=== PATIENT | female | born 2000 | race Caucasian/White ===

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

== ENCOUNTER 2022-04-25 12:20 | Emergency (ER) | payer BC ==
--- NOTE | 2022-04-25 15:31 | ER ---
Nurse's Notes [facility] Name: Jaime Quinn Age: 22 yrs Sex: Female : 2000 Arrival Date: 04/25/2022 Time: 12:31 Bed 20 Private MD: Diagnosis: Otitis media, unspecified, bilateral;Acute upper respiratory infection, unspecified Presentation: 04/25 12:40 Chief complaint: Patient states: cough, mucous, nausea, sore throat X 5 days. iw Coronavirus screen: Client presents with at least one sign or symptom that may indicate coronavirus-19. Ebola Screen: Patient negative for fever greater than or equal to 101.5 degrees Fahrenheit, and additional compatible Ebola Virus Disease symptoms Patient denies exposure to infectious person. Patient denies travel to an Ebola-affected area in the 21 days before illness onset. No symptoms or risks identified at this time. Initial Sepsis Screen: Does the patient meet any 2 criteria? No. Patient's initial sepsis screen is negative. Does the patient have a suspected source of infection? No. Patient's initial sepsis screen is negative. Risk Assessment: Do you want to hurt yourself or someone else? Patient reports no desire to harm self or others. Onset of symptoms was April 20, 2022. 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 - Social history:: Smoking status: unknown. Screenin:08 Abuse screen: Denies threats or abuse. Denies injuries from another. Nutritional iw screening: No deficits noted. Tuberculosis screening: No symptoms or risk factors identified. Fall Risk None identified. Assessment: 15:07 General: Appears in no apparent distress. Behavior is calm, cooperative. Pain: Denies iw pain. Neuro: Level of Consciousness is awake, alert, obeys commands, Oriented to person, place, time, situation, Moves all extremities. Full function. Cardiovascular: Patient's skin is warm and dry. Respiratory: Trachea Respiratory effort is even, unlabored, Respiratory pattern is regular, symmetrical, GI: Abdomen is non-distended, Reports nausea. Derm: Skin is intact, is healthy with good turgor. Vital Signs: 12:40 BP 121 / 82; Pulse 113; Resp 18; Temp 98.4; Pulse Ox 97% on R/A; iw ED Course: 12:31 Patient arrived in ED. am2 12:41 Triage completed. iw 12:44 Arm band placed on. iw 12:47 Martinez Ace PA is PHCP. cp 12:47 Martinez Cabrera MD is Attending Physician. cp 15:03 Jaclyn Ruiz, RN is Primary Nurse. iw 15:07 Patient has correct armband on for positive identification. iw 15:08 No provider procedures requiring assistance completed. Patient did not have IV access iw during this emergency room visit. Administered Medications: No medications were administered Medication: 15:07 VIS not applicable for this client. iw Outcome: 15:30 Discharge ordered by MD. cp 16:04 Discharged to home ambulatory, with family. iw 16:04 Condition: good 16:04 Discharge instructions given to patient, Instructed on discharge instructions, follow up and referral plans. medication usage, Demonstrated understanding of instructions, follow-up care, medications, Prescriptions given X 2. 16:05 Patient left the ED. iw Signatures: Jaclyn Ruiz RN RN Martinez Ace PA PA Soco Flynn am2
--- NOTE | 2022-04-25 15:31 | EDPHYS ---
Physician Documentation [facility] Name: Jaime Quinn Age: 22 yrs Sex: Female : 2000 Arrival Date: 04/25/2022 Time: 12:31 Bed 20 Private MD: ED Physician Martinez Cabrera HPI: 04/25 13:00 This 22 yrs old Female presents to ER via Ambulatory with complaints of Cough, cp Nasal Congestion, Nausea, Ear Pain. 13:00 The patient or guardian reports cough, that is intermittent. Onset: The cp symptoms/episode began/occurred 5 day(s) ago. Severity of symptoms: in the emergency department the symptoms are unchanged. Associated signs and symptoms: Pertinent positives: earache, rhinorrhea, sore throat, Pertinent negatives: diarrhea, fever, vomiting. 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 - Social history:: Smoking status: unknown. ROS: 13:05 Constitutional: Negative for fever, poor PO intake. cp 13:05 Eyes: Negative for injury, pain, redness, and discharge. cp 13:05 Cardiovascular: Negative for chest pain, edema, palpitations. 13:05 Respiratory: Positive for cough, with no reported sputum, Negative for shortness of breath, wheezing. 13:05 Abdomen/GI: Negative for abdominal pain, nausea, vomiting, and diarrhea. 13:05 Skin: Negative for rash. cp 13:05 Neuro: Negative for altered mental status, headache, weakness. 13:05 All other systems are negative. Exam: 13:10 Constitutional: The patient appears in no acute distress, alert, awake, non-toxic, well cp developed, well nourished. 13:10 Head/Face: Normocephalic, atraumatic. cp 13:10 Eyes: Periorbital structures: appear normal, Conjunctiva: normal, no exudate, no injection, Sclera: no appreciated abnormality, Lids and lashes: appear normal, bilaterally. 13:10 ENT: External ear(s): are unremarkable, Ear canal(s): are normal, clear, TM's: bulging, is not appreciated, bilaterally, erythema, that is mild, bilaterally, Nose: is normal, Mouth: Lips: moist, Oral mucosa: moist, Posterior pharynx: Airway: no evidence of obstruction, patent, Tonsils: with erythema, no enlargement, no exudate, Uvula: midline, swelling, is not appreciated, erythema, that is mild, exudate, is not appreciated. 13:10 Neck: ROM/movement: is normal, is supple, without pain, no range of motions limitations, no meningismus, Lymph nodes: no appreciated lymphadenopathy. 13:10 Chest/axilla: Inspection: normal, Palpation: is normal, no crepitus, no tenderness. 13:10 Cardiovascular: Rate: tachycardic, Rhythm: regular. 13:10 Respiratory: the patient does not display signs of respiratory distress, Respirations: normal, no use of accessory muscles, no retractions, labored breathing, is not present, Breath sounds: are clear throughout, no decreased breath sounds, no stridor, no wheezing. 13:10 Abdomen/GI: Exam negative for discomfort, distension, guarding, Inspection: abdomen appears normal. 13:10 Skin: cellulitis, is not appreciated, no rash present. Vital Signs: 12:40 BP 121 / 82; Pulse 113; Resp 18; Temp 98.4; Pulse Ox 97% on R/A; iw MDM: 13:00 Differential Diagnosis: Bronchitis Influenza Upper Respiratory Infection Sinusitis cp Otitis Media Viral Syndrome Pneumonia. 15:04 Patient medically screened. [facility] 15:30 Data reviewed: vital signs, nurses notes, lab test result(s). 15:30 Counseling: I had a detailed discussion with the patient and/or guardian regarding: the cp historical points, exam findings, and any diagnostic results supporting the discharge/admit diagnosis, lab results, to return to the emergency department if symptoms worsen or persist or if there are any questions or concerns that arise at home. 04/25 12:50 Order name: Strep 04/25 12:50 Order name: Influenza Screen (a \\T\\ B) 04/25 12:50 Order name: COVID-19 SARS RT PCR (Document "Date of Onset" if Symptomatic) 04/25 13:51 Order name: Throat Culture EDMS Administered Medications: No medications were administered Disposition Summary: 04/25/22 15:30 Discharge Ordered Location: Home cp Problem: new cp Symptoms: have improved cp Condition: Stable cp Diagnosis - Otitis media, unspecified, bilateral cp - Acute upper respiratory infection, unspecified cp Followup: cp - With: Private Physician - When: 2 - 3 days - Reason: Worsening of condition Discharge Instructions: - Discharge Summary Sheet cp - Otitis Media, Adult cp - Upper Respiratory Infection, Adult cp Forms: - Work release form iw - Medication Reconciliation Form cp - Thank You Letter cp - Antibiotic Education cp - Prescription Opioid Use cp Prescriptions: - Flonase Allergy Relief 50 mcg/actuation Nasal spray,suspension - spray 1 spray by INTRANASAL route once daily for 14 days; 1 Device; Refills: 0, cp Product Selection Permitted - Amoxicillin 875 mg Oral Tablet - take 1 tablet by ORAL route every 12 hours for 10 days; 20 tablet; Refills: 0, cp Product Selection Permitted Signatures: Dispatcher [employer] Martinez Segundo MD MD cha Williams, Irene, RN RN Martinez Osei PA PA cp
[2022-04-25 16:40] VITALS: BP 121/82; TEMP 98.4; O2SAT 97
== END 2022-04-25 16:05 | disposition home or self-care (01) ==
LOC: ER 12:20
DX: H66.93 Otitis media, unspecified, bilateral (principal); J06.9 Acute upper respiratory infection, unspecified; Z20.822 Contact with and (suspected) exposure to COVID-19; Z91.018 Allergy to other foods
CPT/HCPCS: 87070; 87081; 87804 ×2; 99282; U0003

== ENCOUNTER 2022-06-16 18:25 | Emergency (ER) | payer BC ==
[2022-06-16] MEDS ORDERED: METHYLPREDNISOLONE 125 MG INJ ONE (18:49)
[2022-06-16] MEDS ORDERED: DIPHENHYDRAMINE 50 MG/ML VIAL ONE (18:49)
[2022-06-16] MEDS ORDERED: FAMOTIDINE 20 MG/2 ML VIAL IV ONE (18:53)
--- NOTE | 2022-06-16 19:25 | ER ---
Nurse's Notes [facility] Name: Jaime Quinn Age: 22 yrs Sex: Female : 2000 Arrival Date: 06/16/2022 Time: 18:26 Bed 5 Private MD: Diagnosis: Allergic reaction to food;Pain in throat;Cough Presentation: 06/16 18:31 Chief complaint: Allergic to rudd tomatoes, ate some on her sandwich approx 15 mins iw ago, now c/o SOB, throat and back itching. Coughing in triage, hives noted on back. Coronavirus screen: At this time, the client does not indicate any symptoms associated with coronavirus-19. Ebola Screen: No symptoms or risks identified at this time. Onset of symptoms was June 16, 2022. 18:31 Method Of Arrival: Ambulatory iw 18:31 Acuity: MORALES 2 iw 19:48 Onset: The symptoms/episode began/occurred suddenly. Anaphylaxis evaluation, no signs ll3 or symptoms of anaphylaxis were noted. Initial Sepsis Screen: Does the patient meet any 2 criteria? No. Patient's initial sepsis screen is negative. Does the patient have a suspected source of infection? No. Patient's initial sepsis screen is negative. Risk Assessment: Do you want to hurt yourself or someone else? Patient reports no desire to harm self or others. Triage Assessment: 19:48 General: Appears in no apparent distress. comfortable, Behavior is calm, cooperative. ll3 Pain: Denies pain. EENT: Reports Scratchy throat. Respiratory: Airway is patent Respiratory effort is even, unlabored, Respiratory pattern is regular, symmetrical. Derm: Skin is pink, warm \T\ dry. Historical: - Allergies: 18:33 rudd tomatos; iw - Home Meds: 18:33 melatonin 5 mg Oral cap 1 cap nightly prn [Active]; iw - PMHx: 18:33 None; iw - PSHx: 18:33 None; iw - Immunization history:: Adult Immunizations up to date. - Social history:: Smoking status: Patient denies any tobacco usage or history of. Screenin:56 Abuse screen: Denies threats or abuse. Denies injuries from another. Nutritional tp1 screening: No deficits noted. Tuberculosis screening: No symptoms or risk factors identified. Fall Risk No fall in past 12 months (0 pts). No secondary diagnosis (0 pts). IV access (20 points). Ambulatory Aid- Crutches/Cane/Walker (15 pts). Gait- Normal/Bed Rest/Wheelchair (0 pts) Mental Status- Oriented to own ability (0 pts). Assessment: 18:41 Reassessment: administered Benadryl, pt reported arm pain and reported dizziness, pt tp1 appears flush. Advised pt to take slow deep breaths, vomit bag at bedside. After 2 minutes Pt appeared back to baseline, stated feeling much better. 18:47 General: Appears in no apparent distress. uncomfortable, Behavior is calm, cooperative. tp1 Pain: Denies pain. Neuro: Level of Consciousness is awake, alert, obeys commands, Oriented to person, place, time, situation. Cardiovascular: Patient's skin is warm and dry. Respiratory: Reports throat feels scratchy Airway is patent Respiratory effort is even, unlabored, Denies shortness of breath. GI: Abdomen is round non-distended. : No signs and/or symptoms were reported regarding the genitourinary system. EENT: No signs and/or symptoms were reported regarding the EENT system. Derm: Skin is pink, warm \T\ dry. Musculoskeletal: Circulation, motion, and sensation intact. Vital Signs: 18:31 BP 182 / 102; Pulse 100; Resp 24; Temp 97.2; Pulse Ox 98% on R/A; iw 18:46 BP 125 / 89; Pulse 87; Resp 19; Pulse Ox 100% on R/A; jl7 19:49 BP 103 / 68; Pulse 78; Resp 16; Pulse Ox 100% on R/A; ll3 ED Course: 18:26 Patient arrived in ED. am2 18:29 Paresh Munoz DO is Attending Physician. ms3 18:33 Triage completed. iw 18:33 Arm band placed on. iw 18:40 Inserted saline lock: 20 gauge in right antecubital area, using aseptic technique. jl7 18:44 Patient has correct armband on for positive identification. Bed in low position. Call tp1 light in reach. Adult w/ patient. 18:44 Pulse ox on. NIBP on. tp1 18:47 Patti Abreu, ROBY is Primary Nurse. tp1 19:17 Attending Physician role handed off by Paresh Munoz DO kwabena 19:17 Martinez Cabrera MD is Attending Physician. kwabena 19:24 Calixto Becerril DO is Referral Physician. kwabena 19:49 No provider procedures requiring assistance completed. ll3 20:28 IV discontinued, intact, bleeding controlled, No redness/swelling at site. Pressure ll3 dressing applied. Administered Medications: 18:34 CANCELLED (Physician Discretion): SOLU-Medrol (methylPREDNISolone sodium succinate) 125 ms3 mg IM once 18:41 Drug: Benadryl (diphenhydrAMINE) 25 mg Route: IVP; Site: right antecubital; vg1 20:29 Follow up: Response: No adverse reaction ll3 18:43 Drug: SOLU-Medrol (methylPrednisoLONE) 125 mg Route: IVP; Site: right antecubital; vg1 20:29 Follow up: Response: No adverse reaction ll3 19:36 Drug: Pepcid (famotidine) 20 mg Route: IVP; Site: right antecubital; ll3 20:29 Follow up: Response: No adverse reaction ll3 19:36 Drug: predniSONE 60 mg Route: PO; ll3 20:29 Follow up: Response: No adverse reaction ll3 19:36 Drug: Pepcid (famotidine) 20 mg Route: PO; ll3 20:29 Follow up: Response: No adverse reaction ll3 19:37 Drug: NS 0.9% 500 ml Route: IV; Rate: bolus; Site: right antecubital; ll3 20:29 Follow up: Response: No adverse reaction; IV Status: Completed infusion; IV Intake: ll3 500ml 19:38 Not Given (Duplicate Order): Benadryl (diphenhydrAMINE) 25 mg IVP once ll3 19:38 Drug: Benadryl (diphenhydrAMINE) 25 mg Route: PO; ll3 20:29 Follow up: Response: No adverse reaction ll3 Medication: 19:49 VIS not applicable for this client. ll3 Intake: 20:29 IV: 500ml; Total: 500ml. ll3 Outcome: 19:24 Discharge ordered by . kwabena 20:28 Discharged to home ambulatory, with significant other. ll3 20:28 Condition: stable 20:28 Discharge instructions given to patient, significant other, Instructed on discharge instructions, follow up and referral plans. medication usage, Demonstrated understanding of instructions, follow-up care, medications, Prescriptions given X 4. 20:30 Patient left the ED. ll3 Signatures: Martinez Cabrera MD MD cha Williams, Irene, RN RN iw Марина Munoz RN RN jl7 Soco Tang Victoria, RN RN vg1 Paresh Munoz, DO ms3 Chicho Edge RN RN ll3 Patti Abreu RN RN tp1 Corrections: (The following items were deleted from the chart) 18:56 18:51 Reassessment: administered Benadryl, pt reported arm pain and reported dizziness, tp1 pt appears flush. Advised pt to take slow deep breaths, vomit bag at bedside. After 2 minutes Pt appeared back to baseline, stated feeling much better. tp1
--- NOTE | 2022-06-16 19:25 | EDPHYS ---
Physician Documentation [facility] Name: Jaime Quinn Age: 22 yrs Sex: Female : 2000 Arrival Date: 06/16/2022 Time: 18:26 Bed 5 Private MD: ED Physician Martinez Cabrera HPI: 06/16 18:35 This 22 yrs old Female presents to ER via Ambulatory with complaints of ms3 Allergic Reaction, Difficulty Swallowing. 18:35 22-year-old female with no past medical history and allergy to rudd tomatoes presents ms3 15 minutes after eating a rudd tomato. Patient states her throat is sore and she is continually coughing. Patient denies pain. Patient denies alleviating or inciting factors. Patient did not take medications prior to arrival.. Historical: - Allergies: 18:33 rudd tomatos; iw - Home Meds: 18:33 melatonin 5 mg Oral cap 1 cap nightly prn [Active]; iw - PMHx: 18:33 None; iw - PSHx: 18:33 None; iw - Immunization history:: Adult Immunizations up to date. - Social history:: Smoking status: Patient denies any tobacco usage or history of. ROS: 18:35 Constitutional: Negative for fever, and chills. ms3 18:35 Cardiovascular: Negative for chest pain, and palpitations. Abdomen/GI: Negative for abdominal pain, nausea, vomiting, diarrhea, and constipation, MS/Extremity: Negative for injury and deformity, Skin: Negative for injury, rash, and discoloration, Neuro: Negative for headache, weakness, numbness, tingling. 18:35 ENT: Positive for sore throat. 18:35 Respiratory: Positive for cough. 18:35 All other systems are negative. Exam: 18:38 Constitutional: This is a well developed, well nourished patient who is awake, alert, ms3 and in no acute distress. Eyes: Pupils equal round and reactive to light, extra-ocular motions intact. Lids and lashes normal. Conjunctiva and sclera are non-icteric and not injected. Periorbital areas with no swelling, redness, or edema. Neck: Trachea midline, no cervical lymphadenopathy. Supple, full range of motion without nuchal rigidity, or vertebral point tenderness. No Meningismus. Chest/axilla: Normal chest wall appearance and motion. Nontender with no deformity. Cardiovascular: Regular rate and rhythm with a normal S1 and S2. No gallops, murmurs, or rubs. Normal PMI, no JVD. No pulse deficits. Respiratory: Lungs have equal breath sounds bilaterally, clear to auscultation and percussion. No rales, rhonchi or wheezes noted. No increased work of breathing, no retractions or nasal flaring. Abdomen/GI: Soft, non-tender, with normal bowel sounds. No distension or tympany. No guarding or rebound. No evidence of tenderness throughout. 18:38 MS/ Extremity: Pulses equal, no cyanosis. Neurovascular intact. Full, normal range of motion. Neuro: Awake and alert, GCS 15, oriented to person, place, time, and situation. Cranial nerves II-XII grossly intact. Motor strength 5/5 in all extremities. Sensory grossly intact. Cerebellar exam normal. Normal gait. Psych: Awake, alert, with orientation to person, place and time. Behavior, mood, and affect are within normal limits. 18:38 ENT: Posterior pharynx: Tonsils: enlarged on the left, no erythema, no exudate, no ulcerations. Vital Signs: 18:31 BP 182 / 102; Pulse 100; Resp 24; Temp 97.2; Pulse Ox 98% on R/A; iw 18:46 BP 125 / 89; Pulse 87; Resp 19; Pulse Ox 100% on R/A; jl7 19:49 BP 103 / 68; Pulse 78; Resp 16; Pulse Ox 100% on R/A; ll3 MDM: 18:33 Patient medically screened. ms3 18:38 Differential diagnosis: anaphylaxis, Allergic reaction. Data reviewed: vital signs, ms3 nurses notes. Administered Medications: 18:34 CANCELLED (Physician Discretion): SOLU-Medrol (methylPREDNISolone sodium succinate) 125 ms3 mg IM once 18:41 Drug: Benadryl (diphenhydrAMINE) 25 mg Route: IVP; Site: right antecubital; vg1 20:29 Follow up: Response: No adverse reaction ll3 18:43 Drug: SOLU-Medrol (methylPrednisoLONE) 125 mg Route: IVP; Site: right antecubital; vg1 20:29 Follow up: Response: No adverse reaction ll3 19:36 Drug: Pepcid (famotidine) 20 mg Route: IVP; Site: right antecubital; ll3 20:29 Follow up: Response: No adverse reaction ll3 19:36 Drug: predniSONE 60 mg Route: PO; ll3 20:29 Follow up: Response: No adverse reaction ll3 19:36 Drug: Pepcid (famotidine) 20 mg Route: PO; ll3 20:29 Follow up: Response: No adverse reaction ll3 19:37 Drug: NS 0.9% 500 ml Route: IV; Rate: bolus; Site: right antecubital; ll3 20:29 Follow up: Response: No adverse reaction; IV Status: Completed infusion; IV Intake: ll3 500ml 19:38 Not Given (Duplicate Order): Benadryl (diphenhydrAMINE) 25 mg IVP once ll3 19:38 Drug: Benadryl (diphenhydrAMINE) 25 mg Route: PO; ll3 20:29 Follow up: Response: No adverse reaction ll3 Disposition Summary: 06/16/22 19:24 Discharge Ordered Location: Home kwabena Problem: new kwabena Symptoms: are unchanged kwabena Condition: Stable kwabena Diagnosis - Allergic reaction to food kwabena - Pain in throat kwabena - Cough kwabena Followup: ms3 - With: - When: 2 - 3 days - Reason: Re-evaluation by your physician Discharge Instructions: - Discharge Summary Sheet ms3 - Allergies, Adult ms3 - Sore Throat ms3 - Cough, Adult ms3 Forms: - Medication Reconciliation Form kwabena - Thank You Letter kwabena - Antibiotic Education kwabena - Prescription Opioid Use [facility] Prescriptions: - Benadryl 25 mg Oral Capsule - take 2 capsule by ORAL route every 6 hours As needed; 45 tablet; Refills: 0, [facility] Product Selection Permitted - EpiPen 2-Westley - inject 1 application by SUBCUTANEOUS route as directed; 1 packet; Refills: 0, [facility] Product Selection Permitted - Prednisone 20 mg Oral Tablet - take 2 tablets by ORAL route once daily for 5 days; 10 tablet; Refills: 0, ms3 Product Selection Permitted - Pepcid 20 mg Oral Tablet - take 1 tablet by ORAL route every 12 hours for 21 days; 42 tablet; Refills: 0, [facility] Product Selection Permitted Signatures: Martinez Cabrera MD MD cha Williams, Irene, RN RN Carmela Mays RN RN mino1 Paresh Munoz DO DO ms3 Loubet, Lynsea, RN RN ll3 Corrections: (The following items were deleted from the chart) 18:34 18:34 SOLU-Medrol (methylPREDNISolone sodium succinate) 125 mg IM once ordered. ms3 ms3
[2022-06-16] MEDS ORDERED: FAMOTIDINE 20 MG TAB ONE (19:35)
[2022-06-16] MEDS ORDERED: NA CHLORIDE 0.9% 1,000 ML ONE (19:35)
[2022-06-16] MEDS ORDERED: predniSONE 20 MG TAB ONE (19:35)
[2022-06-16] MEDS ORDERED: DIPHENHYDRAMINE 25 MG TAB/CAP ONE (19:35)
[2022-06-18 05:05] VITALS: TEMP 97.2
[2022-06-18 05:07] VITALS: O2SAT 100
[2022-06-18 05:09] VITALS: BP 103/68
== END 2022-06-16 20:30 | disposition home or self-care (01) ==
LOC: ER 18:25
DX: R07.0 Pain in throat (principal); R05.9 Cough, unspecified; Z91.018 Allergy to other foods
CPT/HCPCS: 96361; 96375; 96374; 99284; J1200; J7512; J7030; J2930

== ENCOUNTER 2024-07-21 12:31 | Emergency (ER) | payer BC ==
--- OUTSIDE RECORDS SUMMARY | 2024-07-21 12:34 | XMS REPORT | Continuity of Care Document ---
Author Name Unknown Address [address] [facility] [address]. [address] [place] [address] [facility] Address [address] [facility]. [address] [place] [address] Care Team Providers Care Software Specialist Name Role Phone Poonam Green Primary Care Physician Niki Sosa DO Attending Clinician [phone] MYRTLE MARTÍNEZ Attending Clinician Unavailable Myrtle Martínez DO Attending Clinician [phone] [email or web address]_S Attending Clinician Unavaila LEISA Vicente Attending Clinician Unavailable Leisa Pérez Attending Clinician [phone] MICKY SAMAYOA Attending Clinician Unavailable Xiomara Morley MD Attending Clinician [phone] Micky Samayoa MD Attending Clinician [phone] Sabine YOUNG Attending Clinician Unavailable Sabine Barnett Attending Clinician [phone] BEN CROWELL Attending Clinician UnavailBen Sams Attending Clinician + [phone] NIKI SOSA Attending Clinician Roosevelt Perry Attending Clinician [phone] ROOSEVELT PRINGLE Attending Clinician Unavailable [email or web address]_S Admitting Clinician NIKI Angel Admitting Clinician Noreen wylie Payers Payer Name Policy Type Policy Number Effective Date Expirati on Date Source [place] [id number] 2019 00:00:00 Problems Condition Name Condition Details Condition Category Status Onset Date Resolution Date Last Treatment Date Treating Clinician Comments Source No known active problems No known active problems Disease [facility] Allergies, Adverse Reactions, Alerts Allergy Name Allergy Type Status Severity Reaction(s) Onset Date Inactive Date Treating Clinician Comments Source Ramires Propensi ty to adverse reaction s Active Swelling 2019-09 00:00: 00 Ramires tomato [facility] RAMIRES DRUG INGREDI Active Swelling 2019-09 00:00: 00 [facility] NO KNOWN ALLERGIE S Drug Class Active [facility] Social History Social Habit Start Date Stop Date Quantity Comments Source Gender identity [facility] Sexual orientation U [facility] Exposure to SARS-CoV-2 (event) 2023-01-21 00:00:00 2023-01-31 10:09:[address] [facility] Sex Assigned At 2002 00:00:00 2002 00:00:00 [facility] Smoking Status Start Date Stop Date Source Tobacco smoking consumption unknown [facility] Medications Ordered Medication Name Filled Medication Name Start Date Stop Date Current Medication? Ordering Clinician Indication Dosage Frequency Signature (SIG) Comments Components Source proMETHazin e (PHENERGAN) 25 mg in NaCl 0.9% (NS) 50 mL IV piggyback 06-08 06:45: 00 06-08 07:10 :00 No 25mg 25 mg, IV Piggyback, Administer over 30 Minutes, ONCE, 1 dose, On 06/08/23 at 0145, RUTH [facility] NaCl 0.9% (NS) bolus infusion 1,000 mL 06-08 06:00: 00 06-08 06:07 :00 No 1000mL at 999 mL/hr, 1,000 mL, IV Infusion, ONCE, 1 dose, On Fri06/08/23 at 0100, STAT [facility] ondansetron (ZOFRAN (PF)) injection 4 mg 06-08 05:00: 00 06-08 05:18 :00 No 4mg 4 mg, Slow IV Push, ONCE, 1 dose, On Fri06/08/23 at 0000, RUTH [facility] proMETHazin e 25 mg suppository 06-08 00:00: 00 Yes [id number] 25mg Insert 1 Suppositor y into rectum every 4 (four) hours as needed for Nausea and Vomiting (N/V). [facility] ibuprofen (IBU) tablet 800 mg 06-04 11:30: 00 06-04 11:37 :00 No 800mg 800 mg, Oral, ONCE, 1 dose, On Fri06/04/23 at 0630, RUTH [facility] loratadine 10 mg tablet 06-04 00:00: 00 Yes [id number] 10mg Take 1 tablet by mouth in the morning. [facility] ondansetron 4 mg disintegrat ing tablet 06-04 00:00: 00 Yes [id number] 4mg Take 1 tablet by mouth every 4 (four) hours as needed for Nausea and Vomiting (N/V). [facility] dextrometho moustaphahan-guaif enesin 10-100 mg/5 mL solution 06-04 00:00: 00 Yes [id number] 10mL Take 10 mL by mouth every 6 (six) hours as needed for Cough. [facility] predniSONE 20 mg tablet 01-31 00:00: 00 Yes [id number] 1 PO BID x 4 days [facility] amoxicillin 875 mg tablet 01-31 00:00: 00 02-08 04:59 :00 No [id number] 875mg Take 1 tablet by mouth in the morning and 1 tablet in the evening. Do all this for 7 days. [facility] iopamidol (ISOVUE 370-500 mL) injection 60 mL 05-23 19:45: 00 05-23 19:45 :00 No [id number] 60mL 60 mL, Intravenou s, ONCE, 1 dose, On Marcy 05/23/22 at 1445, Routine [facility] dicyclomine (BENTYL) tablet 20 mg 05-23 19:45: 00 05-23 19:03 :00 No 20mg 20 mg, Oral, ONCE, 1 dose, On Marcy 05/23/22 at 1445, Routine [facility] maalox:diph enhydrAMINE :lidocaine 2 % viscous 1:1:1 ([facility]) oral suspension 15 mL 05-23 19:15: 00 05-23 19:19 :00 No 15mL 15 mL, Oral, ONCE, 1 dose, On Marcy 05/23/22 at 1415, Routine [facility] ketorolac (TORADOL) injection 15 mg 05-23 18:45: 00 05-23 19:03 :00 No 15mg 15 mg, Slow IV Push, ONCE, 1 dose, On Marcy 05/23/22 at 1345, RUTH [facility] ondansetron (ZOFRAN (PF)) injection 4 mg 05-23 18:30: 00 05-23 19:03 :00 No 4mg 4 mg, Slow IV Push, ONCE, 1 dose, On Marcy 05/23/22 at 1330, RUTH [facility] MELATONIN ORAL 05-23 14:41: 48 Yes 1{tbl} Take 1 tablet by mouth every evening. [facility] TAKE 1 TABLET BY MOUTH EVERY 12 HOURS FOR 10 DAYS 05-16 00:00: 00 No 875 ondansetron (ZOFRAN (PF)) injection 4 mg 2019-09 19:00: 00 07-30 17:59 :00 No 4mg 4 mg, Slow IV Push, ONCE, 1 dose, 07/30/20 at 1300, RUTH [facility] NaCl 0.9% (NS) bolus infusion 1,000 mL 2019-09 18:00: 00 07-30 19:00 :00 No 1000mL at 999 mL/hr, 1,000 mL, IV Infusion, ONCE, 1 dose, [place] 07/30/20 at 1200, RUTH [facility] ondansetron 4 mg disintegrat ing tablet 2019-09 00:00: 00 05-23 00:00 :00 No [id number] 4mg Take 1 tablet by mouth every 12 (twelve) hours as needed for Nausea and Vomiting (N/V). [facility] Vital Signs Vital Name Observation Time Observation Value Comments S ource Systolic blood pressure 2024-01-25 15:07:00 122 mm[Hg] [facility] Diastolic blood pressure 2024-01-25 15:07:00 85 mm[Hg] [facility] Heart rate 2024-01-25 15:07:00 111 /min [facility] Body temperature 2024-01-25 15:07:[address] [facility] Respiratory rate 2024-01-25 15:07:00 20 /min [facility] Body height 2024-01-25 15:07:00 162.6 cm [facility] Body weight 2024-01-25 15:07:00 95.255 kg [facility] BMI 2024-01-25 15:07:00 36.05 kg/m2 [facility] Oxygen saturation in Arterial blood by Pulse oximetry 2024-01-25 15:07:00 99 /min [facility] Systolic blood pressure 2023-12-30 17:36:00 126 mm[Hg] [facility] Diastolic blood pressure 2023-12-30 17:36:00 84 mm[Hg] [facility] Heart rate 2023-12-30 17:36:00 84 /min [facility] Body temperature 2023-12-30 17:36:[address] [facility] Respiratory rate 2023-12-30 17:36:00 18 /min [facility] Body height 2023-12-30 17:36:00 162.6 cm [facility] Body weight 2023-12-30 17:36:00 93.441 kg [facility] BMI 2023-12-30 17:36:00 35.36 kg/m2 [facility] Oxygen saturation in Arterial blood by Pulse oximetry 2023-12-30 17:36:00 99 /min [facility] Systolic blood pressure 2023-06-08 07:41:00 120 mm[Hg] [facility] Diastolic blood pressure 2023-06-08 07:41:00 78 mm[Hg] [facility] Heart rate 2023-06-08 07:41:00 84 /min [facility] Body temperature 2023-06-08 07:41:[address] [facility] Respiratory rate 2023-06-08 07:41:00 18 /min [facility] Oxygen saturation in Arterial blood by Pulse oximetry 2023-06-08 07:41:00 99 /min [facility] Body height 2023-06-08 04:30:00 162.6 cm [facility] Body weight 2023-06-08 04:30:00 93.441 kg [facility] BMI 2023-06-08 04:30:00 35.36 kg/m2 [facility] Systolic blood pressure 2023-06-04 11:24:00 118 mm[Hg] [facility] Diastolic blood pressure 2023-06-04 11:24:00 77 mm[Hg] [facility] Heart rate 2023-06-04 11:24:00 111 /min [facility] Body temperature 2023-06-04 11:24:[address] [facility] Respiratory rate 2023-06-04 11:24:00 18 /min [facility] Body height 2023-06-04 11:24:00 154.9 cm [facility] Body weight 2023-06-04 11:24:00 95.255 kg [facility] BMI 2023-06-04 11:24:00 39.68 kg/m2 [facility] Oxygen saturation in Arterial blood by Pulse oximetry 2023-06-04 11:24:00 99 /min [facility] Systolic blood pressure 2023-01-31 15:11:00 119 mm[Hg] [facility] Diastolic blood pressure 2023-01-31 15:11:00 78 mm[Hg] [facility] Heart rate 2023-01-31 15:11:00 94 /min [facility] Body temperature 2023-01-31 15:11:[address] [facility] Respiratory rate 2023-01-31 15:11:00 16 /min [facility] Body height 2023-01-31 15:11:00 162.6 cm [facility] Body weight 2023-01-31 15:11:00 95.255 kg [facility] BMI 2023-01-31 15:11:00 36.05 kg/m2 [facility] Oxygen saturation in Arterial blood by Pulse oximetry 2023-01-31 15:11:00 99 /min [facility] BMI 2022-10-10 00:19:00 37.76 kg/m2 [facility] Oxygen saturation in Arterial blood by Pulse oximetry 2022-10-10 00:19:00 100 /min [facility] Systolic blood pressure 2022-10-10 00:19:00 129 mm[Hg] [facility] Diastolic blood pressure 2022-10-10 00:19:00 86 mm[Hg] [facility] Heart rate 2022-10-10 00:19:00 94 /min [facility] Body temperature 2022-10-10 00:19:[address] [facility] Respiratory rate 2022-10-10 00:19:00 22 /min [facility] Body height 2022-10-10 00:19:00 162.6 [facility] 2022-10-10 00:19:00 99.791 kg [facility] Systolic blood pressure 2022-05-23 19:54:00 114 mm[Hg] [facility] Diastolic blood pressure 2022-05-23 19:54:00 78 mm[Hg] [facility] Heart rate 2022-05-23 19:54:00 74 /min [facility] Respiratory rate 2022-05-23 19:54:00 18 /min [facility] Oxygen saturation in Arterial blood by Pulse oximetry 2022-05-23 19:54:00 98 /min [facility] Body height 2022-05-23 18:14:00 162.6 cm [facility] Body weight 2022-05-23 18:14:00 97.977 kg [facility] BMI 2022-05-23 18:14:00 37.08 kg/m2 [facility] Body temperature 2022-05-23 18:12:[address] [facility] Systolic blood pressure 2020-07-30 19:38:00 124 mm[Hg] [facility] Diastolic blood pressure 2020-07-30 19:38:00 69 mm[Hg] [facility] Heart rate 2020-07-30 19:38:00 86 /min [facility] Body temperature 2020-07-30 19:38:[address] [facility] Respiratory rate 2020-07-30 19:38:00 18 /min [facility] Oxygen saturation in Arterial blood by Pulse oximetry 2020-07-30 19:38:00 98 /min [facility] Body height 2020-07-30 17:51:00 162.6 cm [facility] Body weight 2020-07-30 17:51:00 83.915 kg [facility] BMI 2020-07-30 17:51:00 31.76 kg/m2 [facility] Systolic blood pressure 2020-07-30 19:38:00 124 mm[Hg] [facility] Diastolic blood pressure 2020-07-30 19:38:00 69 mm[Hg] [facility] Heart rate 2020-07-30 19:38:00 86 /min [facility] Body temperature 2020-07-30 19:38:[address] [facility] Respiratory rate 2020-07-30 19:38:00 18 /min [facility] Oxygen saturation in Arterial blood by Pulse oximetry 2020-07-30 19:38:00 98 /min [place] Body height 2020-07-30 17:51:00 162.6 cm [facility] Body weight 2020-07-30 17:51:00 83.915 kg [facility] BMI 2020-07-30 17:51:00 31.76 kg/m2 [facility] Respiratory Rate 2022-05-16 14:06:00 BP Systolic 2022-05-16 14:06:00 123 mm[Hg] BP Diastolic 2022-05-16 14:06:00 81 mm[Hg] Weight Measured 2022-05-16 14:06:00 216.00 pounds Height Measured 2022-05-16 14:06:00 64.00 inches Body Temperature 2022-05-16 14:06:00 97.50 degrees Heart Rate 2022-05-16 14:06:00 93.00 /min Procedures Procedure Date / Time Performed Performing Clinician Source [place] AVULSION NAIL PLATE PARTIAL/COMPLETE SIMPLE 1 2023-12-30 18:23:[address] [facility] CONSENT/REFUSAL FOR DIAGNOSIS AND TREATMENT 2023-06-08 04:23:17 Doctor Unassigned, [place] [facility] RAPID STREP SCREEN FOR GROUP A 2023-06-04 11:32:[address] [facility] RAPID INFLUENZA A/B 2023-06-04 11:32:[address] [facility] COVID-19 (ID NOW RAPID TESTING) 2023-06-04 11:32:[address] [facility] CONSENT/REFUSAL FOR DIAGNOSIS AND TREATMENT 2023-06-04 11:20:18 Doctor Unassigned, [place] [facility] CONSENT/REFUSAL FOR DIAGNOSIS AND TREATMENT 2023-01-31 15:08:19 Doctor Unassigned, [place] [facility] URINALYSIS 2022-10-10 01:14:00 Ben Crowell [facility] NOTICE OF PRIVACY PRACTICES 2022-10-10 00:07:08 Doctor Unassigned, [place] [facility] CONSENT/REFUSAL FOR DIAGNOSIS AND TREATMENT 2022-10-10 00:06:48 Doctor Unassigned, [place] [facility] CT ABDOMEN PELVIS W CONTRAST 2022-05-23 18:46:[address] [facility] LIPASE 2022-05-23 18:29:00 Niki Sosa [facility] COMP. METABOLIC PANEL (03010) 2022-05-23 18:29:[address] [facility] CBC WITH DIFF 2022-05-23 18:29:00 [facility] 2022-05-23 18:29:00 Niki Sosa [facility] POCT TEST 2022-05-23 18:18:[address] [facility] CONSENT/REFUSAL FOR DIAGNOSIS AND TREATMENT 2022-05-23 18:00:35 Doctor Unassigned, [place] [facility] LIPASE 2020-07-30 17:58:00 Roosevelt [facility] COMP. METABOLIC PANEL (20911) 2020-07-30 17:58:[address] [facility] CBC WITH DIFF 2020-07-30 17:58:00 Roosevelt Pringle [facility] URINALYSIS 2020-07-30 17:58:00 Roosevelt Pringle [facility] POCT TEST 2020-07-30 17:54:[address] [facility] CONSENT/REFUSAL FOR DIAGNOSIS AND TREATMENT 2020-07-30 17:38:13 Doctor Unassigned, [place] [facility] NOTICE OF PRIVACY PRACTICES 2020-07-30 17:37:43 Doctor Unassigned, [place] [facility] Plan of Care Planned Activity Planned Date Details Comments Source Goal Plan of Care Note [code = 93158-9] Goal Plan of Care Note [code = 95676-2] Goal Plan of Care Note [code = 91461-2] Goal Plan of Care Note [code = 96276-1] Goal Plan of Care Note [code = 75979-6] Goal Plan of Care Note [code = 95882-5] Goal Plan of Care Note [code = 64820-4] Goal Plan of Care Note [code = 43538-1] Encounters Start Date/Time End Date/Time Encounter Type Admission Type Attending [facility] Care Department Encounter ID Source 2024-07-07 08:50:48 2024-07-07 08:50:48 Outpatient SFA SFA [id number] Bryn Heredia 2024-06-08 09:23:46 2024-06-08 09:23:46 Outpatient SFA SFA [id number] Bryn Heredia 2024-05-27 08:51:38 2024-05-27 08:51:38 Outpatient SFA SFA [id number] Bryn Heredia 2024-05-13 08:44:30 2024-05-13 08:44:30 Outpatient SFA SFA [id number] Bryn Heredia 2024-04-30 12:10:56 2024-04-30 12:10:56 Outpatient SFA SFA [id number] Bryn Heredia 2024-04-29 08:45:11 2024-04-29 08:45:11 Outpatient SFA SFA [id number] Bryn Heredia 2024-04-15 08:06:18 2024-04-15 08:06:18 Outpatient SFA SFA [id number] Bryn Heredia 2024-03-25 08:09:37 2024-03-25 08:09:37 Outpatient SFA SFA [id number] Bryn Heredia 2024-03-04 08:08:27 2024-03-04 08:08:27 Outpatient SFA SFA [id number] Bryn Heredia 2024-02-12 08:02:36 2024-02-12 08:02:36 Outpatient SFA SFA [id number] Bryn Heredia 2024-01-25 10:08:00 2024-01-25 10:29:00 Emergency Niki Sosa [facility] 1.2.840.114 350.1.13.10 4.2.7.2.686 [id number] [facility] 2023-12-30 12:39:00 2023-12-30 13:47:00 Emergency X MYRTLE MARTÍNEZ [facility] ERT [id number] [facility] 2023-12-30 12:39:00 2023-12-30 13:47:00 Emergency Myrtle Martínez [facility] 1.2.840.114 350.1.13.10 4.2.7.2.686 [id number] [facility] 2023-12-17 15:04:08 2023-12-17 15:04:08 Outpatient SFA SFA [id number] Bryn Heredia 2023-09-04 09:59:01 2023-09-04 09:59:01 Outpatient SFA SFA [id number] Bryn Heredia 2023-08-20 14:00:26 2023-08-20 14:00:26 Outpatient SFA SFA [id number] Bryn Heredia 2023-07-27 00:00:00 2023-07-27 00:00:00 Outpatient GC_GCBZW_Ka diyala_S PRIV PRIV [id number] [facility] 2023-07-27 00:00:00 2023-07-27 00:00:00 Outpatient GC_GCBZW_Ka diyala_S PRIV PRIV [id number] [facility] 2023-07-18 15:10:00 2023-07-18 15:10:00 Outpatient SFA SFA [id number] Bryn Heredia 2023-07-11 17:01:12 2023-07-11 17:01:12 Outpatient SFA SFA [id number] Bryn Heredia 2023-07-07 16:52:45 2023-07-07 16:52:45 Outpatient SFA SFA [id number] Bryn Heredia 2023-06-07 23:32:00 2023-06-08 02:45:00 Emergency X MAGANALEISA [facility] ERT [id number] [facility] 2023-06-07 23:32:00 2023-06-08 02:45:00 Emergency Leisa Magana [facility] 1.2.840.114 350.1.13.10 4.2.7.2.686 [id number] [facility] 2023-06-04 06:34:00 2023-06-04 08:09:00 Emergency X SHARDA SAMAYOANELL [facility] ERT [id number] [facility] 2023-06-04 06:34:00 2023-06-04 08:09:00 Emergency Xiomara Morley Micky [facility] 1.2.840.114 350.1.13.10 4.2.7.2.686 [id number] [facility] 2023-01-31 10:11:00 2023-01-31 12:03:00 Emergency X Sabine YOUNG [facility] ERT [id number] [facility] 2023-01-31 10:11:00 2023-01-31 12:03:00 Emergency Sabine Young [facility] 1.2.840.114 350.1.13.10 4.2.7.2.686 [id number] [facility] 2022-10-09 18:21:00 2022-10-09 20:07:00 Emergency X BEN CROWELL [facility] ERT [id number] [facility] 2022-10-09 18:21:00 2022-10-09 20:07:00 [facility] 1.2.840.114 350.1.13.10 4.2.7.2.686 [id number] [facility] 2022-05-23 13:19:00 2022-05-23 14:57:00 Emergency X NIKI SOSA [facility] ERT [id number] [facility] 2022-05-23 13:19:00 2022-05-23 14:57:00 Emergency Niki Sosa [facility] 1.2.840.114 350.1.13.10 4.2.7.2.686 [id number] [facility] 2022-05-16 00:00:00 2022-05-16 00:00:00 Outpatient Visit [id number] 2020-07-30 11:41:00 2020-07-30 13:40:00 Emergency Roosevelt Pringle [facility] 1.2.840.114 350.1.13.10 4.2.7.2.686 [id number] 2020-07-30 11:41:00 2020-07-30 13:40:00 Emergency Roosevelt [facility] 1.2.840.114 350.1.13.10 4.2.7.2.686 [id number] [facility] 2020-07-30 11:40:00 2020-07-30 11:40:00 Emergency X ROOSEVELT PRINGLE [facility] ERT [id number] [facility] Results Test Description Test Time Test Comments Results Result Comments Source Nail Care 2 18:23:47 Myrtle Martínez DO ? ? 12/30/2023 ?1:25 PMNail Care Date/Time: 12/30/2023 1:23 PM Performed by: Myrtle Martínez DOAuthorized by: Myrtle Martínez DO ?Consent: ?Consent obtained: ?Verbal ?Consent given by: ?Patient ?Risks discussed: ?Bleeding, infection, pain and permanent nail deformity ?Alternatives discussed: ?No treatmentUniversal protocol: ?Patient identity confirmed: ?Verbally with patientLocation: ?Hand: ?L small fingerPre-procedure details: ?Skin preparation: ?ChlorhexidineAnesthes ia: ?Anesthesia method: ?Nerve block ?Block location: ?5th MCP ?Block needle gauge: ?27 G ?Block anesthetic: ?Lidocaine 1% w/o epi ?Block injection procedure: ?Anatomic landmarks identified, introduced needle, incremental injection, anatomic landmarks palpated and negative aspiration for blood ?Block outcome: ?Anesthesia achievedNail Removal: ?Nail removed: ?CompleteIngrown nail: ?Nail matrix removed or ablated: ?NonePost-procedure details: ?Dressing: ?Petrolatum-impregnate d gauze and splint (+ non adherent) ?Procedure completion: ?Tolerated [facility] CBC WITH [id number] 19:22:16* Test Item Value Reference Range Interpretation Comme nts WBC (test code = 6690-2) See_Comment [Automated [employer]] The system which generated this result transmitted reference range: 4.30 - 11.10 10*3/?L. The reference range was not used to interpret this result as normal/abnormal. RBC (test code = 789-8) See_Comment [Automated [employer]] The system which generated this result transmitted reference range: 3.93 - 5.25 10*6/?L. The reference range was not used to interpret this result as normal/abnormal. HGB (test code = 718-7) 13.5 g/dL 11.6-15 HCT (test code = 4544-3) 42.0 % 35.7-45.2 MCV (test code = 787-2) 81.6 fL 80.6-95.5 MCH (test code = 785-6) 26.2 pg 25.9-32.8 MCHC (test code = 786-4) 32.1 g/dL 31.6-35.1 RDW-SD (test code = 51049-1) 39.9 fL 39-49.9 RDW-CV (test code = 788-0) 13.4 % 12-15.5 PLT (test code = 777-3) See_Comment [Automated [employer]] The system which generated this result transmitted reference range: 166 - 358 10*3/?L. The reference range was not used to interpret this result as normal/abnormal. MPV (test code = 51766-5) 10.3 fL 9.5-12.9 NRBC/100 WBC (test code = 1256604062) See_Comment [Automated me ssage] The system which generated this result transmitted reference range: 0.0 - 10.0 /100 WBCs. The reference range was not used to interpret this result as normal/abnormal. NRBC x10^3 (test code = 1156593916) See_Comment [Automated messa ge] The system which generated this result transmitted reference range: 10*3/?L. The reference range was not used to interpret this result as normal/abnormal. GRAN MAT (NEUT) % (test code = 770-8) 54.5 % IMM GRAN % (test code = 3551290926) 1.00 % LYMPH % (test code = 736-9) 33.4 % MONO % (test code = 5905-5) 6.3 % EOS % (test code = 713-8) 4.2 % BASO % (test code = 706-2) 0.6 % GRAN MAT x10^3(ANC) (test code = 8989239692) 4.70 10*3/uL 1.88-7.09 IMM GRAN x10^3 (test code = 3963069466) 0.09 10*3/uL 0-0.06 H LYMPH x10^3 (test code = 731-0) 2.88 10*3/uL 1.32-3.29 MONO x10^3 (test code = 742-7) 0.54 10*3/uL 0.33-0.92 EOS x10^3 (test code = 711-2) 0.36 10*3/uL 0.03-0.39 BASO x10^3 (test code = 704-7) 0.05 10*3/uL 0.01-0.07 Lab Interpretation (test code = 02866-4) Abnormal [facility]. METABOLIC PANEL (18698)2022-05-23 18:50:26* Test Item Value Reference Range Interpretation Comme nts NA (test code = 3526487315) 140 mmol/L 135-145 K (test code = 7024296586) 3.8 mmol/L 3.5-5 CL (test code = 2003106818) 103 mmol/L 98-108 CO2 TOTAL (test code = 4821142197) 28 mmol/L 23-31 AGAP (test code = 4167357277) 2-16 BUN (test code = 5568749812) 15 mg/dL 7-23 GLUCOSE (test code = 1728124835) 93 mg/dL 70-110 CREATININE (test code = 4568873762) 0.75 mg/dL 0.5-1.04 TOTAL BILI (test code = 3702544664) 0.5 mg/dL 0.1-1.1 CALCIUM (test code = 7682027380) 9.5 mg/dL 8.6-10.6 T PROTEIN (test code = 6290981837) 7.7 g/dL 6.3-8.2 ALBUMIN (test code = 1008068487) 5.0 g/dL 3.5-5 ALK PHOS (test code = 1248199287) 85 U/L 34-122 ALTv (test code = 1742-6) 25 U/L 5-35 AST(SGOT) (test code = 1084441281) 26 U/L 13-40 eGFR (test code = 4047840400) mL/min/1.73m2 RITA (test code = RITA) Association of Glomerular Filtration Rate (GFR) and Staging of Kidney Disease* + + +- +| GFR (mL/min/1.73 m2) ?| With Kidney Damage ?| ?Without Kidney Damage+ ------+ ----+ ------+| ?>90 ?| ?Stage one ?| ? Normal ?+ -+ + -+| ?60-89 ?| ?Stage two ?| ? Decreased GFR ? + + +- +| ?30-59 ?| ?Stage three ?| ? Stage three ? + + +- +| ?15-29 ?| ?Stage four ? | ? Stage four ?+ -+ + -+| ?<15 (or dialysis) ? ?| ?Stage five ? | ? Stage five ?+ -+ + -+ *Each stage assumes the associated GFR level has been in effect for at least three months. ?Stages 1 to 5, with or without kidney disease, indicate chronic kidney disease. Notes: Determination of stages one and two (with eGFR >59mL/min/1.73 m2) requires estimation of kidney damage for at least three months as defined by structural or functional abnormalities of the kidney, manifested by either:Pathological abnormalities or Markers of kidney damage (including abnormalities in the composition of the blood or urine or abnormalities in imaging tests). [facility]50:05* Test Item Value Reference Range Interpretation Comme nts LIPASE (test code = 9277742748) 50 U/L 0-220 Lab Interpretation (test cod e = 70944-8) Normal [facility] [id number] 18:18:00* Test Item Value Reference Range Interpretation Comme nts POCT PREG (test code = 1605) Negative On board controls acceptable with C Line (test code = 3574) Present POCT PREG LOT # (test code = 3575) [facility] [id number] POCT PREG TEST DATE ( test code = 3576) 07/29/2023 Lab Interpretation (test cod e = 49751-5) Normal [facility] CenterCULT[facility], [id number] 11:38:45SPECIMEN NUMBER: [id number] CULTURE, URINE SPECIMEN NUMBER: [id number] SPECIMEN COMMENT: URINE SOURCE: URINE REPORT STATUS: FINAL FINAL REPORT: 05/18/2022 <10,000 CFU/ML MIXED UROGENITAL FLORACOMPREHENSIVE METABOLIC [id number] 04:10:42* Test Item Value Reference Range Interpretation Comme nts GLUCOSE (test code = 2217) 88 MG/DL 70-99 BUN (test code = 2208) 11 MG/DL 6-20 CREATININE (test code = 2214) 0.89 MG/DL 0.80-1.40 eGFR (2020 CKD-EPI) (test code = 38827) 126 ML/MIN/1.73 >60 CALC BUN/CREAT (test code = 2235) 12 RATIO 6-28 SODIUM (test code = 2231) 141 MEQ/L 133-146 POTASSIUM (test code = 2228) 3.9 MEQ/L 3.5-5.4 CHLORIDE (test code = 2215) 104 MEQ/L 95-107 CARBON DIOXIDE (test code = 2206) 25 MEQ/L 19-31 CALCIUM (test code = 2209) 9.4 MG/DL 8.5-10.5 PROTEIN, TOTAL (test code = 2229) 7.4 G/DL 6.1-8.3 ALBUMIN (test code = 2201) 4.8 G/DL 3.5-5.2 CALC GLOBULIN (test code = 2240) 2.6 G/DL 1.9-3.7 CALC A/G RATIO (test code = 2234) 1.8 RATIO 1.0-2.6 BILIRUBIN, TOTAL (test code = 2207) 0.3 MG/DL See_Comment [Automated id ssage] The system which generated this result transmitted reference range: <=1.2. The reference range was not used to interpret this result as normal/abnormal. ALKALINE PHOSPHATASE (test code = 2203) 103 U/L 49-148 AST (test code = 2218) 19 U/L 9-50 ALT (test code = 2219) 17 U/L 5-50 HEMOGLOBIN [id number] 03:02:32* Test Item Value Reference Range Interpretation Comme nts HEMOGLOBIN A1c (test code = 64724) 5.6 % 4.2-5.6 UNLESS OTHERWISE INDICATED, ALL TESTING PERFORMED [facility] [address] [place] [address] JAVA SCALA DEVELOPER: KARLA ASKEW M.D. CLIA NUMBER [id number] [facility] [place]. [id number] 18:27:00* Test Item Value Reference Range Interpretation Comme nts APPEARANCE (test code = 9605151180) Clear Clear COLOR (test code = 8419652422) Yellow Yellow PH (test code = 5109889642) 4.8-8.0 SP GRAVITY (test code = 7208559662) 1.003-1.030 GLU U QUAL (test code = 2854614458) Normal Normal BLOOD (test code = 4114294418) Negative Negative KETONES (test code = 6062369751) Negative Negative PROTEIN (test code = 2887-8) Negative Negative UROBILIN (test code = 5250347956) Normal Normal BILIRUBIN (test code = 5224471501) Negative Negative NITRITE (test code = 4751000061) Negative Negative LEUK GURWINDER (test code = 2496317698) Negative Negative RBC/HPF (test code = 3865033479) See_Comment [Automated messa ge] The system which generated this result transmitted reference range: 0 - 3 HPF. The reference range was not used to interpret this result as normal/abnormal. WBC/HPF (test code = 9638419031) See_Comment [Automated ServerEnginesa ge] The system which generated this result transmitted reference range: 0 - 5 HPF. The reference range was not used to interpret this result as normal/abnormal. BACTERIA (test code = 1386608602) Few Negative A MUCOUS (test code = 2738531992) Slight Negative LPF A SQ EPITH (test code = 0318878348) HPF Lab Interpretation (test code = 75330-2) Abnormal [facility]. METABOLIC PANEL (83302)2020-07-30 18:23:00* Test Item Value Reference Range Interpretation Comme nts NA (test code = 7602027821) 137 mmol/L 135-145 K (test code = 2328281817) 3.8 mmol/L 3.5-5 CL (test code = 2989611607) 103 mmol/L 98-108 CO2 TOTAL (test code = 6557605171) 29 mmol/L 23-31 AGAP (test code = 2302547629) 2-16 BUN (test code = 5939295188) 14 mg/dL 7-23 GLUCOSE (test code = 4464388044) 101 mg/dL 70-110 CREATININE (test code = 1593100101) 0.78 mg/dL 0.5-1.04 TOTAL BILI (test code = 5489738974) 0.5 mg/dL 0.1-1.1 CALCIUM (test code = 2316821089) 9.5 mg/dL 8.6-10.6 T PROTEIN (test code = 2662534926) 7.8 g/dL 6.3-8.2 ALBUMIN (test code = 1737384466) 4.4 g/dL 3.5-5 ALK PHOS (test code = 4228335671) 68 U/L 34-122 ALTv (test code = 1742-6) 13 U/L 5-35 AST(SGOT) (test code = 0315313626) 21 U/L 13-40 eGFR Calculation (Non-) (test code = 8028265067) mL/min/1.73m2 eGFR Calculation () (test code = 3278484616) mL/min/1.73m2 RITA (test code = RITA) Association of Glomerular Filtration Rate (GFR) and Staging of Kidney Disease* + -+ + ---+| GFR (mL/min/1.73 m2) ?| With Kidney Damage ?| ?Without Kidney Damage+ -------+ ------+ ---------+| ?>90 ?| ?Stage one ?| ? Normal ?+ --+ -+ ----+| ?60-89 ?| ?Stage two ?| ? Decreased GFR ? + -+ + ---+| ?30-59 ?| ?Stage three ?| ? Stage three ? + -+ + ---+| ?15-29 ?| ?Stage four ? | ? Stage four ?+ --+ -+ ----+| ?<15 (or dialysis) ? ?| ?Stage five ? | ? Stage five ?+ --+ -+ ----+ *Each stage assumes the associated GFR level has been in effect for at least three months. ?Stages 1 to 5, with or without kidney disease, indicate chronic kidney disease. Notes: Determination of stages one and two (with eGFR >59mL/min/1.73 m2) requires estimation of kidney damage for at least three months as defined by structural or functional abnormalities of the kidney, manifested by either:Pathological abnormalities or Markers of kidney damage (including abnormalities in the composition of the blood or urine or abnormalities in imaging tests). [facility] [id number] 18:23:00* Test Item Value Reference Range Interpretation Comme nts LIPASE (test code = 7150542426) 41 U/L 0-220 Lab Interpretation (test cod e = 32276-7) Normal [facility] CenterCBC with [id number] 18:10:00* Test Item Value Reference Range Interpretation Comme nts WBC (test code = 6690-2) See_Comment [Automated [employer]] The system which generated this result transmitted reference range: 4.50 - 13.50 10*3/?L. The reference range was not used to interpret this result as normal/abnormal. RBC (test code = 789-8) See_Comment [Automated [employer]] The system which generated this result transmitted reference range: 4.10 - 5.10 10*6/?L. The reference range was not used to interpret this result as normal/abnormal. HGB (test code = 718-7) 12.6 g/dL 12-16 HCT (test code = 4544-3) 39.3 % 36-45 MCV (test code = 787-2) 83.1 fL 78-95 MCH (test code = 785-6) 26.6 pg 26-32 MCHC (test code = 786-4) 32.1 g/dL 32-36 RDW-SD (test code = 14385-2) 39.8 fL 38.5-49 RDW-CV (test code = 788-0) 13.2 % 11.5-14 PLT (test code = 777-3) See_Comment [Automated ServerEnginesa ge] The system which generated this result transmitted reference range: 135 - 361 10*3/?L. The reference range was not used to interpret this result as normal/abnormal. MPV (test code = 15154-9) 10.6 fL 9.4-13.3 NRBC/100 WBC (test code = 5172417270) See_Comment [Automated Graspr ssage] The system which generated this result transmitted reference range: 0.0 - 10.0 /100 WBCs. The reference range was not used to interpret this result as normal/abnormal. NRBC x10^3 (test code = 9740729991) <0.01 See_Comment [Automated ServerEnginesa ge] The system which generated this result transmitted reference range: 10*3/?L. The reference range was not used to interpret this result as normal/abnormal. GRAN MAT (NEUT) % (test code = 770-8) 59.5 % IMM GRAN % (test code = 5581378930) 0.30 % LYMPH % (test code = 736-9) 32.7 % MONO % (test code = 5905-5) 6.3 % EOS % (test code = 713-8) 0.9 % BASO % (test code = 706-2) 0.3 % GRAN MAT x10^3(ANC) (test code = 1197838516) 5.39 10*3/uL 1.5-10.3 IMM GRAN x10^3 (test code = 4164022657) 0.03 10*3/uL 0-0.06 LYMPH x10^3 (test code = 731-0) 2.96 10*3/uL 0.7-7.4 MONO x10^3 (test code = 742-7) 0.57 10*3/uL 0-0.5 H EOS x10^3 (test code = 711-2) 0.08 10*3/uL 0-0.4 BASO x10^3 (test code = 704-7) 0.03 10*3/uL 0-0.1 Lab Interpretation (test code = 62309-8) Abnormal [facility] [id number] 17:54:00* Test Item Value Reference Range Interpretation Comme nts POCT PREG (test code = 1605) negative POCT PREG LOT # (test code = 3575) [id number] POCT PREG TEST DATE ( test code = 3576) 12/27/2021 Lab Interpretation (test cod e = 64375-7) Normal [facility] Notes Date/Time Note Provider Source 2024-01-25 10:25:12 Patient dc home. Follow up with PCP. Take OTC meds. Return if worsening symptoms. [facility] 2024-01-25 10:24:58 Patient refused swabs. [facility] 2024-01-25 10:07:26 Reports of cough and sore throat. [facility] Connor Quinones RN [facility] 2024-01-25 10:01:00 [facility] Emergency Department Note Patient Name: Jaime Quinn Date of : 2000 23 year old female Treatment Room: [facility] ED [facility] Primary Care Physician: Haylee Pozo Patient Escorted by: Family [5] Mode of Arrival: Personal means [1] EMS Treatment Prior to ED Arrival: Travel and Exposure Screening: Symptoms Does patient have any of these symptoms?: (not recorded) Exposure Screening Has patient had contact with someone with a communicable disease in the last month?: (not recorded) Diseases exposed to:: (not recorded) Is Patient ?: (not recorded) Exposure Date: (not recorded) Chief Complaint: Chief Complaint Patient presents with Sore Throat History of Present Illness: The patient presents from home for evaluation for cough, body aches and not feeling well since Friday. Her sister is home sick with similar symptoms. She has been using jyuq-sac-iqexifd cough and cold medications with some help. She does smoke cigarettes. No history of diabetes. Here for evaluation. Past Medical History/Immunizations: No past medical history on file. Allergies: Allergies Allergen Reactions Ramires Swelling Ramires tomato Past Social History: Substance & Sexual Activity No substance use or sexual activity history on file. Past Surgical History: No past surgical history on file. Review of Systems: Review of Systems Constitutional: Positive for chills and fever. HENT: Positive for sore throat. Respiratory: Positive for cough. Cardiovascular: Negative for chest pain. Gastrointestinal: Negative for abdominal pain. Genitourinary: Negative for dysuria. Musculoskeletal: Positive for arthralgias and myalgias. Negative for neck pain and neck stiffness. Skin: Negative for wound. Neurological: Negative for dizziness. Psychiatric/Behavioral: Negative for agitation. Endocrine: Negative for goiter. Physical Exam: ED Triage Vitals [01/25/24 1007] Weight 95.3 kg (210 lb) Actual or estimated Height 1.626 m (5' 4") BP 122/85 Pulse 111 Resp 20 Temp 36.8 ?C (98.2 ?F) Temp src SpO2 99 % Measured on Physical Exam Vitals and nursing note reviewed. Constitutional: Appearance: Normal appearance. HENT: Head: Normocephalic and atraumatic. Right Ear: Tympanic membrane and ear canal normal. Left Ear: Tympanic membrane and ear canal normal. Nose: Nose normal. Mouth/Throat: Mouth: Mucous membranes are moist. Pharynx: Oropharynx is clear. No oropharyngeal exudate or posterior oropharyngeal erythema. Cardiovascular: Rate and Rhythm: Normal rate and regular rhythm. Pulmonary: Effort: Pulmonary effort is normal. No respiratory distress. Breath sounds: No wheezing. Abdominal: General: There is no distension. Palpations: There is no mass. Tenderness: There is no abdominal tenderness. There is no guarding. Musculoskeletal: General: Normal range of motion. Cervical back: Neck supple. Skin: General: Skin is warm. Neurological: General: No focal deficit present. Mental Status: She is alert and oriented to person, place, and time. Radiology: No orders to display Lab Results: Lab Results - No data to display EKG: If EKG completed, see Procedure Note. Orders and Treatments: No orders of the defined types were placed in this encounter. No orders of the defined types were placed in this encounter. First Provider Eval: ED Events Date/Time Event User Comments 01/25/24 1001 Medical Screening Begins NIKI SOSA DO -- 01/25/24 1001 First Provider Evaluation NIKI SOSA DO -- ED COURSE Diagnosis/Impression as of 01/25/24 1017 Upper respiratory tract infection, unspecified type Procedures: Procedures MDM: Medical Decision Making The patient presents from home for evaluation for cough, sore throat as well as body aches since Friday. Today is Friday. Her sister is home sick with similar symptoms. She has been using dwze-zoy-pslumgv cough and cold medications with the help of her symptoms. She does smoke cigarettes. No history of diabetes. Vital signs are stable in ER. The patient is obese. Her lungs are clear bilaterally. Her pharynx is pink and without exudates or erythema. Her tympanic membranes are pearly martinez bilaterally. No concern for bacterial infection based on her presentation. Suspect a viral syndrome. The patient does not desire testing for COVID or influenza. She remained stable here in the ER and is okay for discharge home with PCP follow-up. Recommend use nnff-yxq-zvnbfuz cough and cold medications as needed for her symptoms. Problems Addressed: Upper respiratory tract infection, unspecified type: acute illness or injury Risk OTC drugs. Flowsheet Documentation: Scoring Tools: No data recorded Disposition/Condition: ED Disposition ED Disposition Disch - Home Condition Stable Comment -- Discharge Medications: Patient's Medications START taking these medications No medications on file CONTINUE taking these medications which have NOT CHANGED DEXTROMETHORPHAN-GUAIFENESIN 10-100 MG/5 ML SOLUTION Take 10 mL by mouth every 6 (six) hours as needed for Cough. LORATADINE 10 MG TABLET Take 1 tablet by mouth in the morning. MELATONIN ORAL Take 1 tablet by mouth every evening. ONDANSETRON 4 MG DISINTEGRATING TABLET Take 1 tablet by mouth every 4 (four) hours as needed for Nausea and Vomiting (N/V). PREDNISONE 20 MG TABLET 1 PO BID x 4 days PROMETHAZINE 25 MG SUPPOSITORY Insert 1 Suppository into rectum every 4 (four) hours as needed for Nausea and Vomiting (N/V). START taking Modified Medications as Prescribed No medications on file STOP taking these medications No medications on file Follow-up: Electronically signed by: Niki Sosa DO 01/25/24 1017 [facility] 2023-12-30 13:45:25 Pt given printed and verbal discharge instructions regarding nail avulsion, encouraged hydration. 0 Prescriptions provided Discussed ibuprofen and to take with food to avoid GI distress. Pt verbalized understanding of instructions, pt awake alert oriented, resp reg unlabored, skin w/d, color appropriate for race, moves all ext well,pt encouraged to follow up with pcp. Advised to seek medical attention for new/prolonged/worsening of symptoms, Symptoms improved No adverse reaction to meds given in ER noted upon discharge Awake, alert oriented, resp reg unlabored, skin w/d, pt leaving amb with steady gait, in no apparent distress. Christi Sanchez RN [facility] 2023-12-30 12:36:08 Patient to ED for fingernail problem. She was trying to catch something at work that was falling and it partially pulled finger nail away and there is bleeding that is controlled. 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 Hit nail on counter. Fake nails present. Discontinuity between nail and matrix. No bleeding. Past Medical History/Immunizations: No past medical history on file. Tetanus received in last 5 years: Unknown Childhood immunizations: Up-to-date Allergies: Allergies Allergen Reactions Ramires Swelling Ramires tomato Past Social History: Substance & Sexual Activity No substance use or sexual activity history on file. Past Surgical History: No past surgical history on file. Review of Systems: Review of Systems Constitutional: Negative for diaphoresis. Gastrointestinal: Negative for nausea and vomiting. Skin: Positive for wound. Negative for color change. Neurological: Negative for weakness and numbness. Psychiatric/Behavioral: The patient is nervous/anxious. Hematological: Does not bruise/bleed easily. Physical Exam: ED Triage Vitals [12/30/23 1236] Weight 93.4 kg (206 lb) Actual or estimated Height 1.626 m (5' 4") BP 126/84 Pulse 84 Resp 18 Temp 37.3 ?C (99.1 ?F) Temp src SpO2 99 % Measured on Physical Exam Constitutional: General: She is not in acute distress. Appearance: She is well-developed. HENT: Head: Normocephalic and atraumatic. Eyes: Pupils: Pupils are equal, round, and reactive to light. Cardiovascular: Rate and Rhythm: Normal rate. Pulmonary: Effort: Pulmonary effort is normal. Abdominal: General: There is no distension. Musculoskeletal: General: Normal range of motion. Cervical back: Normal range of motion. Skin: General: Skin is warm and dry. Comments: Left small finger nail avulsion. No laceration. Involving matrix. Neurological: Mental Status: She is alert and oriented to person, place, and time. Radiology: No orders to display Lab Results: Lab Results - No data to display EKG: If EKG completed, see Procedure Note. Orders and Treatments: Orders Placed This Encounter Procedures Nail Care No orders of the defined types were placed in this encounter. First Provider Eval: ED Events Date/Time Event User Comments 12/30/23 1240 Medical Screening Begins MYRTLE MARTÍNEZ -- 12/30/23 1240 First Provider Evaluation MYRTLE MARTÍNEZ -- ED COURSE Diagnosis/Impression as of 12/30/23 1325 Nail avulsion, finger, initial encounter Procedures: Nail Care Date/Time: 12/30/2023 1:23 PM Performed by: Myrtle Martínez DO Authorized by: Myrtle Martínez DO Consent: Consent obtained: Verbal Consent given by: Patient Risks discussed: Bleeding, infection, pain and permanent nail deformity Alternatives discussed: No treatment [place] protocol: Patient identity confirmed: Verbally with patient Location: Hand: L small finger Pre-procedure details: Skin preparation: Chlorhexidine Anesthesia: Anesthesia method: Nerve block Block location: 5th MCP Block needle gauge: 27 G Block anesthetic: Lidocaine 1% w/o epi Block injection procedure: Anatomic landmarks identified, introduced needle, incremental injection, anatomic landmarks palpated and negative aspiration for blood Block outcome: Anesthesia achieved Nail Removal: Nail removed: Complete Ingrown nail: Nail matrix removed or ablated: None Post-procedure details: Dressing: Petrolatum-impregnated gauze and splint (+ non adherent) Procedure completion: Tolerated MDM: Medical Decision Making Jaime Quinn is a 23 year old female with nail avulsion. No laceration. Nerve block performed. Nail removed. Cleaned and dressed. Problems Addressed: Nail avulsion, finger, initial encounter: acute illness or injury Flowsheet Documentation: Scoring Tools: No data recorded Disposition/Condition: ED Disposition ED Disposition Disch - Home Condition Stable Comment -- Discharge Medications: Patient's Medications START taking these medications No medications on file CONTINUE taking these medications which have NOT CHANGED DEXTROMETHORPHAN-GUAIFENESIN 10-100 MG/5 ML SOLUTION Take 10 mL by mouth every 6 (six) hours as needed for Cough. LORATADINE 10 MG TABLET Take 1 tablet by mouth in the morning. MELATONIN ORAL Take 1 tablet by mouth every evening. ONDANSETRON 4 MG DISINTEGRATING TABLET Take 1 tablet by mouth every 4 (four) hours as needed for Nausea and Vomiting (N/V). PREDNISONE 20 MG TABLET 1 PO BID x 4 days PROMETHAZINE 25 MG SUPPOSITORY Insert 1 Suppository into rectum every 4 (four) hours as needed for Nausea and Vomiting (N/V). START taking Modified Medications as Prescribed No medications on file STOP taking these medications No medications on file Follow-up: Contact information for follow-up [facility] Specialty: Emergency Medicine [address] [facility] [facility] [address] Instructions: If symptoms worsen as documented in the discharge [facility] [address], [address] [facility] [address] Instructions: For follow up of the presenting symptoms. Electronically signed by: Myrtle Martínez DO 12/30/23 1325 [facility] 2023-06-08 02:44:32 Formatting of this n ote might be different from the original. Pt given printed and verbal discharge instructions regarding COVID-19 and vomiting Prescriptions provided Pt verbalized understanding of instructions, pt awake alert oriented, resp reg unlabored, skin w/d, color appropriate for race, moves all ext well,pt encouraged to follow up with pcp Advised to seek medical attention for new/prolonged/worsening of symptoms No adverse reaction to meds given in ER noted upon discharge PIV d'cd, dressing to site, catheter in tact. Awake, alert oriented, resp reg unlabored, skin w/d, pt leaving amb with steady gait, in no apparent distress Amy Mercer RN [facility] 2023-06-08 01:15:41 Formatting of this n ote might be different from the original. Pt offered 12oz water for PO challenge. IVF completed Soco Saldaña RN [facility] 2023-06-07 23:28:40 Formatting of this n ote might be different from the original. Tested positive for Covid 9/5. Complaining on ongoing diarrhea, nausea, vomiting, malaise. Symptoms not improving since she tested positive. [facility] 05/10/2023 Hx - anxiety Yue Molina RN [facility] 2023-06-04 08:07:18 Formatting of this n ote might be different from the original. Pt given printed and verbal discharge instructions regarding covid+, encouraged hydration. 3 Prescriptions provided Discussed ibuprofen and to take with food to avoid GI distress. Pt verbalized understanding of instructions, pt awake alert oriented, resp reg unlabored, skin w/d, color appropriate for race, moves all ext well,pt encouraged to follow up with pcp. Advised to seek medical attention for new/prolonged/worsening of symptoms, Symptoms remain the same No adverse reaction to meds given in ER noted upon discharge Awake, alert oriented, resp reg unlabored, skin w/d, pt leaving amb with steady gait, in no apparent distress. Christi Sanchez RN [facility] 2023-06-04 06:24:01 Formatting of this n ote might be different from the original. Sore throat X3 days, cough, fever, body aches, that started yesterday and than around 0500 pt state that she started feeling lightheaded. Zuleika Turner RN [facility] 2023-06-04 06:19:00 Formatting of this n ote might be different from the original. The patient was endorsed to me by Dr. Morley. Patient has a positive COVID. Strep and flu were negative. The patient appears well. She is not at risk for severe disease. She will be sent with Claritin, dextromethorphan and guaifenesin. Also Zofran. She appears well and nontoxic. She is not in any respiratory stress. She will be discharged follow-up. She can return for any questions or concerns. Micky Samayoa MD 06/04/23 0734 [facility]
--- NOTE | 2024-07-21 14:25 | ER ---
Nurse's Notes [facility] Name: Jaime Quinn Age: 24 yrs Sex: Female : 2000 Arrival Date: 07/21/2024 Time: 12:31 Bed IW10 Private MD: Diagnosis: Nausea with vomiting, unspecified;Diarrhea, unspecified Presentation: 07/21 12:45 Chief complaint: Patient states: Upper abdominal pain, vomiting, and diarrhea onset cm10 today. Pt states that last night she had decreased appetite. Coronavirus screen: Client denies travel out of the [place] in the last 14 days. Ebola Screen: Patient denies travel to an Ebola-affected area in the 21 days before illness onset. No symptoms or risks identified at this time. Initial Sepsis Screen: Does the patient meet any 2 criteria? RR > 20 per min. HR > 90 bpm. Does the patient have a suspected source of infection? No. Patient's initial sepsis screen is negative. Risk Assessment: Do you want to hurt yourself or someone else? Patient reports no desire to harm self or others. Onset of symptoms was July 21, 2024. 12:45 Method Of Arrival: Ambulatory cm10 12:45 Acuity: MORALES 3 cm10 Triage Assessment: 12:48 General: Appears in no apparent distress. uncomfortable, Behavior is anxious. Neuro: No cm10 deficits noted. Level of Consciousness is awake, alert, obeys commands, Oriented to person, place, time, situation, Appropriate for age. Historical: - Allergies: 12:47 rudd tomatos; cm10 - Home Meds: 12:47 sertraline 50 mg oral tablet [Active]; cm10 - PMHx: 12:47 Anxiety; cm10 - Immunization history:: Adult Immunizations up to date. - Infectious Disease History:: Denies. - Social history:: Smoking status: unknown. - Family history:: not pertinent. - Hospitalizations: : No recent hospitalization is reported. Assessment: 13:40 Reassessment: called pt phone, no answer, no answer from lobby when called. iw Vital Signs: 12:45 BP 105 / 75; Pulse 125; Resp 20; Temp 97.4; Pulse Ox 100% on R/A; Weight 97.52 kg; cm10 Height 5 ft. 4 in. ; Pain 6/10; 12:45 Body Mass Index 36.90 (97.52 kg, 162.56 cm) cm10 12:45 Pain Scale: Adult cm10 ED Course: 12:33 Patient arrived in ED. mr 12:39 Delta Hollis MD is Attending Physician. rn 12:47 Triage completed. cm10 12:48 Arm band placed on Patient placed in an exam room, on a stretcher. cm10 Administered Medications: 14:10 Not Given (Patient Refused): ondansetron 4 mg IVP once; over 2 minutes iw 14:10 Not Given (Patient Refused): ns 0.9% 1000 ml IV at 1 bolus Per protocol; to be given as iw a bolus over 60 minutes Outcome: 14:24 Discharge ordered by . rn 14:39 Patient left the ED. iw Signatures: Mary Carrasco, Reg Reg Jaclyn Ruiz, RN RN iw Delta Hollis MD MD rn Martinez, Clarissa, RN RN cm10
--- NOTE | 2024-07-21 14:25 | EDPHYS ---
Physician Documentation [facility] Name: Jaime Quinn Age: 24 yrs Sex: Female : 2000 Arrival Date: 07/21/2024 Time: 12:31 Bed IW10 Private MD: ED Physician Delta Hollis HPI: 07/21 14:05 This 24 yrs old Female presents to ER via Ambulatory with complaints of rn Vomiting/Diarrhea. 14:05 The patient presents to the emergency department with nausea, vomiting, diarrhea. rn Onset: The symptoms/episode began/occurred yesterday. Possible causes: unknown, sick contacts, by family. The symptoms are aggravated by nothing. The symptoms are alleviated by nothing. Severity of symptoms: At their worst the symptoms were mild in the emergency department the symptoms are unchanged. The patient has not experienced similar symptoms in the past. Patient reports 2 days of nausea/vomiting/diarrhea. Equal parts vomiting and diarrhea. No fever but does report chills. Also reports has anxiety and feeling very anxious. No blood in emesis or stool. Lives with 2 other people that are also ill with vomiting and diarrhea. Patient reports mild abdominal cramping but no focal pain or tenderness.. Historical: - Allergies: 12:47 rudd tomatos; cm10 - Home Meds: 12:47 sertraline 50 mg oral tablet [Active]; cm10 - PMHx: 12:47 Anxiety; cm10 - Immunization history:: Adult Immunizations up to date. - Infectious Disease History:: Denies. - Social history:: Smoking status: unknown. - Family history:: not pertinent. - Hospitalizations: : No recent hospitalization is reported. ROS: 14:05 Constitutional: Negative for fever, chills, and weight loss, Cardiovascular: Negative rn for chest pain, palpitations, and edema, Respiratory: Negative for shortness of breath, cough, wheezing, and pleuritic chest pain, Abdomen/GI: Positive for nausea/vomiting/diarrhea Back: Negative for injury and pain, : Negative for injury, bleeding, discharge, and swelling, MS/Extremity: Negative for injury and deformity, Skin: Negative for injury, rash, and discoloration, Neuro: Negative for headache, numbness, tingling, and seizure, Exam: 14:05 Constitutional: This is a well developed, well nourished patient who is awake, alert, rn appears anxious ENT: Dry mucous membranes Cardiovascular: Tachycardic, regular. Abdomen/GI: Soft, no focal tenderness/rebound/guarding MS/ Extremity: Pulses equal, no cyanosis. Neuro: Awake and alert, GCS 15 Vital Signs: 12:45 BP 105 / 75; Pulse 125; Resp 20; Temp 97.4; Pulse Ox 100% on R/A; Weight 97.52 kg; cm10 Height 5 ft. 4 in. ; Pain 6/10; 12:45 Body Mass Index 36.90 (97.52 kg, 162.56 cm) cm10 12:45 Pain Scale: Adult cm10 MDM: 12:39 Medical Screening Exam initiated rn 14:08 Differential diagnosis: Nonspecific abd pain, viral gastroenteritis, gastroenteritis. rn Data reviewed: vital signs, nurses notes. Refusal of service: The patient/guardian displays adequate decision making capability and despite a detailed discussion of alternatives, benefits, risks, and consequences refuses: Patient refuses to wait. Does not like that she had to wait in the lobby so left immediately.. ED course: Patient left immediately after being placed back in the lobby because we did not have any beds. I explained to her that we would get her back as soon as possible. Patient left prior to evaluation with labs.. Administered Medications: 14:10 Not Given (Patient Refused): ondansetron 4 mg IVP once; over 2 minutes iw 14:10 Not Given (Patient Refused): ns 0.9% 1000 ml IV at 1 bolus Per protocol; to be given as iw a bolus over 60 minutes Disposition Summary: 07/21/24 14:24 Discharge Ordered Notes: Location: Home rn Problem: new rn Symptoms: are unchanged rn Condition: Stable rn Diagnosis - Nausea with vomiting, unspecified rn - Diarrhea, unspecified rn Followup: rn - With: Private Physician - When: As needed - Reason: Recheck today's complaints, Re-evaluation by your physician Forms: - Medication Reconciliation Form rn - Antibiotic 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 EDMS EDMS 12:50 12:49 COMPREHENSIVE METABOLIC PANEL+C.LAB.BRZ ordered. EDMS EDMS 12:50 12:50 LIPASE+C.LAB.BRZ ordered. EDMS EDMS 12:50 12:50 SARS-COV-2 Antigen Rapid+I.LAB.BRZ ordered. EDMS EDMS 12:50 12:50 Influenza Screen (A \T\ B)+BA.LAB.BRZ ordered. EDMS EDMS 14: 14:05 Constitutional: This is a well developed, well nourished patient who is awake, rn alert, and in no acute distress. Cardiovascular: Tachycardic, regular. Abdomen/GI: Soft, no focal tenderness/rebound/guarding tania 14: 12:49 IV Saline Lock ordered. tania thomas 14: 12:49 Labs collected and sent ordered. tania thomas
[2024-07-21 18:58] VITALS: BP 105/75; TEMP 97.4; O2SAT 100
== END 2024-07-21 14:39 | disposition home or self-care (01) ==
LOC: ER 12:31
DX: R11.2 Nausea with vomiting, unspecified (principal); R19.7 Diarrhea, unspecified